=== PATIENT | male | born 1970 | race Two or more races ===

== ENCOUNTER 2018-01-27 18:32 | Emergency (ER) | payer SELFPAY ==
[~2018-01-27] VITALS: Ht 167.6 cm; Wt 81.6 kg
[~2018-01-27 18:32] MED LIST: VENTOLIN HFA18 GM INH
[2018-01-27 18:35] VITALS: BP 130/88
[2018-01-27] MEDS ORDERED: Lidocaine 1% Plain 30 ml INJ ONE (19:00)
[2018-01-27] MEDS ORDERED: Morphine IR 15mg tab ORAL ONE ×2 (19:00→20:30)
[2018-01-27] MEDS: Ketorolac 30mg Inj IM ONE ×2 (19:03→19:22)
[2018-01-27] MEDS ORDERED: MS Contin 15mg tab ORAL ONE (20:00)
[2018-01-27] MEDS ORDERED: Tetanus/Diptheria/Pertussis Vaccine 0.5ml Syr IM ONE (20:15)
[2018-01-27] MEDS ORDERED: Lidocaine 1% 10mg/ml/Epi 0.005mg/ml 30ml vial INJ ONE (20:15)
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
[2018-01-27] MEDS ORDERED: Bacitracin Oint UD TOPIC ONE ×2 (20:51→21:00)
[2018-01-27] MEDS ORDERED: NORCO 5-325 TA1 EACH ORAL (21:07)
[2018-01-27] MEDS ORDERED: CEPHALEXIN500 MG ORAL (21:07)
[2018-01-27 21:15] VITALS: BP 118/81
[2018-01-27 21:20] VITALS: BP 118/81
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
== END 2018-01-27 21:20 | disposition home or self-care (01) ==
LOC: EDBD 18:32 → EMR 18:57
DX: S61.412A Laceration without foreign body of left hand, initial encounter (principal); X99.1XXA Assault by knife, initial encounter; S62.610A Displaced fracture of proximal phalanx of right index finger, initial encounter for closed fracture; Y92.830 Public park as the place of occurrence of the external cause; Z23 Encounter for immunization
CPT/HCPCS: 73130; 90471; 90715; 99284; J2001